=== PATIENT | female | born 1990 | race Two or more races ===

== ENCOUNTER 2023-06-23 15:58 | Emergency (ER) | payer OTHER ==
[~2023-06-23] VITALS: Ht 157.5 cm; Wt 83.5 kg
[2023-06-23] MEDS ORDERED: ZESTRIL2.5 MG (16:25)
== END 2023-06-23 18:18 | disposition home or self-care (01) ==
LOC: ER 15:59
DX: S61.512A Laceration without foreign body of left wrist, initial encounter (principal); W25.XXXA Contact with sharp glass, initial encounter; Y93.89 Activity, other specified; Y92.89 Other specified places as the place of occurrence of the external cause; Y99.8 Other external cause status; Z91.018 Allergy to other foods; E11.9 Type 2 diabetes mellitus without complications; I10 Essential (primary) hypertension